=== PATIENT | female | born 2000 | race Caucasian/White ===

== ENCOUNTER 2024-10-10 10:10 | Inpatient (IN) | payer MEDICAID, SELFPAY ==
[2024-10-10] VITALS (105 sets, daily range): BP systolic 118–161; BP diastolic 62–98; PULSE 67–205; RESP 16–99; TEMP 36.4–37; O2SAT 66–100; BMI 26.9
[2024-10-10] MEDS: RINGERS LACTATED 1000 ML 1,000 ML 999 ML IV ×3 (11:26→21:56)
[2024-10-10 14:56] LABS: Basophils # (Auto) 0.1 Thou/mm3 (0.0-0.2); Basophils % (Auto) 0 % (0-2.5); Eosinophils # (Auto) 0.1 Thou/mm3 (0.0-0.5); Eosinophils % (Auto) 1 % (0-10); Hematocrit 37.6 % (36.0-46.0); Immature Granulocytes % (Auto) 0 % (0-0); Immature Granulocytes Auto 0.04 Thou/mm3 (0.00-0.00); Lymphocytes % (Auto) 17 % (10-50); Mean Corpuscular HGB Conc 34.6 g/dl (31.0-37.0); Mean Corpuscular Volume 87 fL (80-100); Monocytes # (Auto) 0.7 Thou/mm3 (0.0-0.8); Monocytes % (Auto) 6 % (0-12); Neutrophils # (Auto) 8.9 Thou/mm3 (1.8-7.7); Neutrophils % (Auto) 75 % (37-80); Nucleated Red Blood Cell % 0 /100 WBC (0); Platelet Count 215 Thou/mm3 (140-440); RDW Standard Deviation 37.2 fL (36.4-46.3); Red Blood Count 4.33 Miln/mm3 (4.00-5.20); White Blood Count 11.8 Thou/mm3 (3.6-11.0)
[2024-10-10 15:40] LABS: Syphilis Nonreactive (Nonreactive)
[2024-10-10 18:48] LABS: Amphetamine/Metham Scrn,Ur OB Negative (Negative); Benzoylecgonine Screen, Ur OB Negative (Negative); Opiate Screen,Urine OB Negative (Negative); THC Screen,Urine OB Negative (Negative)
--- NOTE | 2024-10-10 19:16 | PD.LDPN ---
Documentation for date of: 10/10/24 OB Labor Progress Note Pain Control Pain control: epidural Pelvic Exam Dilation (cm): 6 Effacement (%): 90 station: 0 Amniotic membrane status: Ruptured (AROM, bloody clear) Contractions Monitor mode: External Contraction frequency: 2-3 Contraction duration: 40-60 Contraction phase: Contraction Contraction intensity: Mild Status status: Category l Assessment and Plan Assessment: active labor Plan OB labor note: continuous present management Comments: AROM performed, bloody clear fluids Anticipate
--- NOTE | 2024-10-10 22:04 | ESPR_ITS ---
Documentation for date of: 10/10/24 OB Labor Progress Note Pain Control Pain control: epidural Pelvic Exam Dilation (cm): 10 Effacement (%): 100 station: +1 Amniotic membrane status: Ruptured (AROM, bloody clear) Contractions Monitor mode: External Contraction frequency: 2-3 Contraction duration: 40-60 Contraction phase: Contraction Contraction intensity: Mild Status status: Category ll Assessment and Plan Assessment: other (2nd stage) Comments: Fetus had 7 minute prolonged deceleration, RN checked pt she is complete, intrauterine measures completed. Fetus has recovered. RN will begin pushing once baby is Category 1 tracing and upon pt feeling pre ssure CNM in the unit awaiting delivery
[2024-10-10] MEDS: DIPHENOXYLATE/ATROP SULF 1 TAB PO (22:36)
[2024-10-10] MEDS: METOCLOPRAMIDE INJ 5 MG/ML VIAL 2 ML 10 MG IVP (22:51)
[2024-10-10] MEDS: FAMOTIDINE INJ 10 MG/ML VIAL 2 ML 20 MG IV (22:51)
[2024-10-10] MEDS: ceFAZolin/D5W 2 GM IV 2 GM/100 ML BAG IV (22:51)
--- NOTE | 2024-10-10 22:51 | PD.LDPN ---
Documentation for date of: 10/10/24 OB Labor Progress Note Pelvic Exam Dilation (cm): 10 Effacement (%): 100 station: +1 Amniotic membrane status: Ruptured (AROM, bloody clear) Contractions Monitor mode: External Contraction frequency: 2-3 Contraction phase: Contraction Contraction intensity: Mild Status status: Category ll Assessment and Plan Assessment: other (2nd stage) Plan OB labor note: Comments: Pushed with pt but fetus was not tolerating and continued to have variable deceleration Called Dr. Hananh, who reviewed the tracing and called a C/S Handoff to [place]
--- NOTE | 2024-10-10 22:53 | ESOP_ITS ---
Operative Note - CUSTOMER OPERATIONS ASSOCIATE Procedure Date of procedure: 10/10/24 Procedure Performed: Primary low-transverse section Indication: Failure to descend Category 2 with intermittent category 3 tracing Post-Op diagnosis: Same as preoperative Placental abruption Small for gestational age fetus Anesthesia type: Spinal Procedure description: Informed consent was obtained and the patient was taken to the operating room.? Identity was confirmed by double identifiers and she was placed on the operating table.? Spinal anesthesia was administered and she was positioned in the supine position.? The abdomen and perineum were prepped in the usual sterile fashion and a Trent catheter was placed to continuous drainage.? Sterile drapes were applied.? The incision site was tested for adequacy of anesthesia.? A Pfannenstiel skin incision was made with a scalpel and carried to the subcutaneous fat up to the rectus fascia.? The rectus fascia was incised on either side of the midline and the incisions were extended bilaterally.? The fascia was gently dissected off the ventral surface of the rectus muscle both superiorly and inferiorly.? The rectus bellies were gently in the midline and the peritoneum was identified and entered bluntly using the surgeon's finger.? The peritoneal opening was now stretched to create an adequate opening for access to the uterus.? Ori O-ring retractor was placed for adequate visualization.? The anterior surface of the uterus was palpated.? The bladder reflection was identified and a Eleni Lai low transverse uterine incision was made in the lower uterine segment taking care to avoid the bladder.? Uterine entry was accomplished bluntly and the opening was stretched to create adequate room.? The amniotic membranes were now ruptured and clear amniotic fluid was released.? The fetus was noted to be in the vertex position.? The head was gently elevated out of the maternal pelvis and single loop of nuchal cord was found around the neck.? The cord was released and the rest of the shoulders and body were delivered by gentle fundal pressure.? Umbilical cord was doubly clamped, divided and the infant was handed over to the waiting team.? Cord gas samples were obtained.? The placenta was delivered by gentle traction on the umbilical cord.? The interior of the uterus was now thoroughly cleaned of all blood and debris and membranes.? The hysterotomy angles were grasped by a pair of Allis clamps and the hysterotomy was closed using 1 Monocryl suture in 2 layers.? The first layer was used to approximate the muscle in a running locked fashion, the second layer was used to approximate the thickness of the myometrium?and uterine serosa in a imbricated manner.? Once the repair was completed the hysterotomy was inspected and noted to be adequately hemostatic.?? Attention was now turned to the left fallopian tube.? The tube was grasped using Radha's clamp and elevated to expose the mesosalpinx.? Salpingectomy was performed using the LigaSure vessel sealing device and the entire tube was handed over for pathological examination.? The same procedure was repeated on the contralateral side.? The salpingectomy sites were inspected and noted to be adequately hemostatic. The hysterotomy was once again inspected and hemostasis was noted to be satisfactory.? The Ori retractor was now removed.? The peritoneal edges were re approximated.? The rectus muscles were re approximated.? The rectus fascia was now repaired using 0 Vicryl suture in a running fashion.? The subcutaneous layer was now copiously irrigated using warm normal saline.? All bleeding points were cauterized using the Bovie.? The subcutaneous fat was closed using 3-0 Vicryl.? The skin was closed using 4-0 Monocryl in a subcuticular fashion.? The skin was cleaned and a sterile dressing was applied.? The patient was now undraped, the abdomen and back were thoroughly cleaned and she was not transferred to the recovery room in a stable and awake condition.? The patient tolerated the entire procedure well.? No complications were encountered.? All instrument, sponge and lap counts were correct x2. Estimated blood loss (ml): 600 Complications: none Diagnosis Discharge Diagnosis (1) Failure of descent in labor, delivered, current hospitalization: Status: Acute (2) delivery delivered: Status: Acute (3) SGA (small for gestational age), , affecting care of mother, antepartum: Status: Acute Problem List Completed Was Problem List Reviewed/Reconciled?: Yes
--- NOTE | 2024-10-10 23:47 | PD.LDDELS ---
Data (Ward) Data Hx Section: No : 1 Term: 0 : 0 : 0
[2024-10-11] VITALS (17 sets, daily range): BP systolic 117–146; BP diastolic 69–90; PULSE 83–104; RESP 15–23; TEMP 36.5–37.6; O2SAT 96–100
--- NOTE | 2024-10-11 00:08 | SUR.PHASEI ---
0008: pt received from OB OR via bed. received report from GERALDINE Raymundo and KELSI Nguyen. pt alert and oriented x3. denies any pain or discomfort. no s/s of resp. distress or discomfort. dressing to lower transverse abdomen clean, dry and intact. no active bleeding noted from dressing. lopez cath in place and intact.
[2024-10-11] MEDS: OXYTOCIN in NS 20 units 20 UNIT/1,000 ML BAG 125 UNIT IV (00:55)
--- NOTE | 2024-10-11 02:10 | SUR.PHASEI ---
0210: pt transferred to room 467. pt alert and oriented x3. denies any pain or discomfort. no s/s of resp. distress or discomfort. dressing to lower transverse abdomen clean, dry and intact. no active bleeding noted from dressing. lopez cath in place and intact.
--- NOTE | 2024-10-11 02:10 | SUR.PHASEI ---
0210: report given to GERALDINE Guajardo
--- NOTE | 2024-10-11 02:10 | SUR.PHASEI ---
0210: report given GERALDINE Noriega.
[2024-10-11] MEDS: KETOROLAC INJ 30 MG/ML VIAL IVP ×2 (03:29→11:52)
[2024-10-11 05:59] LABS: Basophils # (Auto) 0.1 Thou/mm3 (0.0-0.2); Basophils % (Auto) 0 % (0-2.5); Eosinophils % (Auto) 0 % (0-10); Hematocrit 32.4 % (36.0-46.0); Hemoglobin 11.5 g/dL (12.0-16.0); Immature Granulocytes % (Auto) 0 % (0-0); Immature Granulocytes Auto 0.06 Thou/mm3 (0.00-0.00); Lymphocytes # (Auto) 1.7 Thou/mm3 (1.0-4.8); Lymphocytes % (Auto) 10 % (10-50); Mean Corpuscular HGB Conc 35.5 g/dl (31.0-37.0); Mean Corpuscular Hemoglobin 30.7 pg (25.0-35.0); Mean Corpuscular Volume 86 fL (80-100); Monocytes % (Auto) 6 % (0-12); Neutrophils # (Auto) 13.9 Thou/mm3 (1.8-7.7); Neutrophils % (Auto) 83 % (37-80); Nucleated Red Blood Cell % 0 /100 WBC (0); Platelet Count 175 Thou/mm3 (140-440); RDW Standard Deviation 36.9 fL (36.4-46.3); Red Blood Count 3.75 Miln/mm3 (4.00-5.20); White Blood Count 16.7 Thou/mm3 (3.6-11.0)
--- NOTE | 2024-10-11 06:59 | PD.LDHP ---
Documented by User: Patricia Almanza CNM 10/11/24 07:05 Documentation for date of: 10/11/24 OB Labor/Induct. HPI History of Present Illness Chief complaint: labor : 1 Para: 0 Term pregnancies: 0 pregnancies: 0 Living children: 0 History of Abortions: Spontaneous and Elective: 0 History of Vaginal deliveries: 0 History of sections: No History of : No Date of last menstrual period: 01/19/24 [place]ER[place]: 10/25/24 Gestational Age (weeks): 37 Gestational Age (days): 6 Gestational age based on last menstrual period: 38 History of present illness: This is a 23-year-old 1 para 0 admit to labor and delivery for complaints of contractions became regular and strong at 10:00 AM. [facility] First visit 8 weeks. Last period January 19, 2024. EDC October 25, 2024. First visit was at 8 weeks. Patient had several anatomy scans. Showed EFW in the 23rd percentile with a small VSD. Desires social habits. Denies surgery. Denies chronic illness. Patient is O+, antibody screen negative, RPR nonreactive, rubella immune, hepatitis B-, hep C negative, HIV negative, GC and Chlamydia were negative. GBS negative. Patient had a normal 1 hour. Her NIPT AFP and carrier screens were all negative History of Present Dating criteria: LMP confirmed by 1st trimester US Adequate Care: Yes Ultrasounds: normal 1st trimester US and normal mid trimester US Obstetrical complications: none Medical complications: none Labs Labs: Negative: Hepatitis B, HIV, Chlamydia, Gonorrhea and Group Beta Strep Review of Systems Review of Systems Systems Reviewed: All systems reviewed, normal except as documented Past Medical History Surgical History SURGICAL: Negative Section Meds Home Medications and Allergies Home Medications ?Medication ?Instructions ?Recorded ?Confirmed ?Type vit no.95-ferrous 1 tab PO QDAY 10/10/24 10/10/24 History fumarate 28 mg-folic acid 800 mcg tablet () Allergies Allergy/AdvReac Type Severity Reaction Status Date / Time No Known Allergies Allergy Verified 10/11/24 00:25 OB Exam Physical Exam Vital signs: Temp Pulse Resp BP Pulse Ox O2 Del Method O2 Flow Rate 98.6 F 102 H 18 128/81 98 Room Air 2 10/11/24 05:30 10/11/24 03:30 10/11/24 03:30 10/11/24 03:30 10/11/24 03:30 10/11/24 03:30 10/11/24 01:05 Narrative: Normal heart rate and rhythm. Lungs clear no wheezes. Gravid abdomen. Gynecoid pelvis. Estimated weight 6 pounds. Vaginal exam on admission was 90%, 4, -2. Bag water intact. heart rate category 1 with accelerations and moderate variability. And contractions were every 3 to 5 minutes. Detailed Labor and Delivery Exam Dilation (cm): 4 Effacement (%): 90 Cervix position: mid station: -2 Consistency: soft Presentation: Vertex Cervical ripeness score: 8 Membranes: intact Baseline heart rate: 145 monitor accelerations: 15x15 monitor decelerations: None intermediate accountant variability: Moderate (11-25) Contraction frequency (min): 3-5 Contraction duration (sec): 30 Tachysystole: No Contraction intensity: Moderate OB Results Labs 10/11/24 05:30 Labs: Short CBC 10/10/24 10/11/24 Range/Units 13:00 05:30 WBC 11.8 H 16.7 H D (3.6-11.0) Thou/mm3 Hgb 13.0 11.5 L (12.0-16.0) g/dL Hct 37.6 32.4 L (36.0-46.0) % Plt Count 215 175 D (140-440) Thou/mm3 Impressions Impression: labor OB Assessment & Plan Assessment and Plan (1) Failure of descent in labor, delivered, current hospitalization: Status: Acute (2) delivery delivered: Status: Acute (3) SGA (small for gestational age), , affecting care of mother, antepartum: Status: Acute (4) Normal labor and delivery: Status: Acute Additional Plan Induction method: none Plan: anticipate NVD and consult MD albright Documented by User: Derrick Hannah MD 10/11/24 08:34 OB Labor/Induct. HPI History of Present Illness Gestational age based on last menstrual period: 38 Meds Home Medications and Allergies Home Medications ?Medication ?Instructions ?Recorded ?Confirmed ?Type vit no.95-ferrous 1 tab PO QDAY 10/10/24 10/10/24 History fumarate 28 mg-folic acid 800 mcg tablet () Allergies Allergy/AdvReac Type Severity Reaction Status Date / Time No Known Allergies Allergy Verified 10/11/24 00:25 OB Exam Physical Exam Vital signs: Temp Pulse Resp BP Pulse Ox O2 Del Method O2 Flow Rate 98.6 F 102 H 18 128/81 98 Room Air 2 10/11/24 05:30 10/11/24 03:30 10/11/24 03:30 10/11/24 03:30 10/11/24 03:30 10/11/24 03:30 10/11/24 01:05 OB Results Labs 10/11/24 05:30 Labs: Short CBC 10/10/24 10/11/24 Range/Units 13:00 05:30 WBC 11.8 H 16.7 H D (3.6-11.0) Thou/mm3 Hgb 13.0 11.5 L (12.0-16.0) g/dL Hct 37.6 32.4 L (36.0-46.0) % Plt Count 215 175 D (140-440) Thou/mm3 OB Assessment & Plan Assessment and Plan (1) Failure of descent in labor, delivered, current hospitalization: Status: Acute (2) delivery delivered: Status: Acute (3) SGA (small for gestational age), , affecting care of mother, antepartum: Status: Acute (4) Normal labor and delivery: Status: Acute
--- NOTE | 2024-10-11 08:32 | PD.LDPPPRG ---
Subjective Subjective Interval history: Delivery type: Patient doing well this morning. No acute complaints. Ambulating, tolerating p.o. and voiding without difficulty. HTN/Pre-Eclampsia screen: No chest pain, shortness of breath, headache, visual changes, epigastric or right upper quadrant pain. Breast-feeding, lochia diminishing. Bowel: Flatus+/ BM+ Exam Vital Signs Temp Pulse Resp BP Pulse Ox O2 Del Method O2 Flow Rate 98.6 F 102 H 18 128/81 98 Room Air 2 10/11/24 05:30 10/11/24 03:30 10/11/24 03:30 10/11/24 03:30 10/11/24 03:30 10/11/24 03:30 10/11/24 01:05 Constitutional Constitutional: no acute distress Routine HEENT Exam Head: Present normocephalic and atraumatic Eye: Present EOMI and PERRL ENT: Present mucous membranes moist Routine Neck Exam Neck: Present supple and trachea midline Routine Respiratory Exam Respiratory: Present chest non-tender, lungs clear, normal breath sounds and no resp distress Routine Cardiovascular Exam Cardiovascular: Present RRR Routine Abdominal Exam Abdominal: Present soft and normoactive bowel sounds Routine Extremities Exam Extremities: Present full ROM Routine Skin Exam Skin: Present intact, dry and warm Routine Neurological Exam Neurological: Present alert, oriented X3 and CN II-XII intact Routine Psychiatric Exam Psychiatric: Present normal affect and normal thought process Objective Labs 10/11/24 05:30 Labs: Laboratory Results - last 24 hr 10/10/24 10/10/24 10/11/24 13:00 17:20 05:30 WBC 11.8 H 16.7 H D RBC 4.33 3.75 L Hgb 13.0 11.5 L Hct 37.6 32.4 L MCV 87 86 MCH 30.0 30.7 MCHC 34.6 35.5 RDW Std Deviation 37.2 36.9 Plt Count 215 175 D Neut % (Auto) 75 83 H Lymph % (Auto) 17 10 [place] % (Auto) 6 6 Eos % (Auto) 1 0 Baso % (Auto) 0 0 Neut # (Auto) 8.9 H 13.9 H Lymph # (Auto) 2.0 1.7 [place] # (Auto) 0.7 1.0 H Eos # (Auto) 0.1 0.0 Baso # (Auto) 0.1 0.1 Immature Gran # (Auto) 0.04 H 0.06 H Absolute Nucleated RBC 0.00 0.00 Immature Gran % 0 0 Nucleated RBC % 0 0 Urine Opiates Screen Negative U Amphetamin/Meth Scrn Negative U Cocaine Metab Screen Negative U Marijuana (THC) Screen Negative Syphilis Serology Nonreactive Blood Type O Positive Antibody Screen NEGATIVE Blood Bank Wristband ID Yes Assessment & Plan Problem List (1) Failure of descent in labor, delivered, current hospitalization: Status: Acute (2) delivery delivered: Status: Acute Assessment and plan: 1. Continue routine /post-op care 2. Labs reviewed, cbc appropriate 3. Remove dressing/Trent 4. Encourage to ambulate, shower 5. Encourage PO intake, breast feeding (3) SGA (small for gestational age), , affecting care of mother, antepartum: Status: Acute (4) Normal labor and delivery: Status: Acute Time Spent With Patient Time: Total time spent is greater than 50% in coordination of care (as documented) at patient's floor/unit and/or counseling patient:
--- NOTE | 2024-10-11 08:33 | OBDSUM_ITS ---
Data (Ward) Data Hx Section: No : 1 Para: 0 Term: 0 : 0 : 0 Delivery Data (Ward) Labor Data ROM Date: 10/10/24 ROM Time: 16:12 Rupture Type: AROM Amniotic Fluid: Clear Delivery Data Labor Onset Stage 1 Date: 10/10/24 Labor Onset Stage 1 Time: 16:45 Labor Onset Stage 2 Date: 10/10/24 Labor Onset Stage 2 Time: 21:36 Delivery Date: 10/10/24 Delivery Time: 23:24 Placenta Delivery Date: 10/10/24 Placenta Delivery Time: 23:24 Delivered by: Derrick Hannah Delivery nurse: Breanne Brumfield Other staff at delivery: Nursery Nurse Other staff at delivery: KELSI Other staff at delivery: Sharyn Rivera Other staff at delivery: Abisai Jaimes Delivery Method Delivery: Delivery Type: Primary Anesthesia Type Primary Anesthesia: Epidural Secondary Anesthesia: General Umbilical Cord Placenta/Cord Complication: Placental Abruption [place] Data (Ward) Data Gender: Male Weight Grams: 2400 1 Minute Total: 4 5 Minute Total: 6 10 Minute Total: 9
--- NOTE | 2024-10-11 08:33 | ESDS_ITS ---
DS: Providers Provider Date of admission: 10/10/24 13:21 Primary care physician: Physician No Primary/Family Admitting Provider: Derrick Hannah MD Attending Provider on Admission: Patricia Almanza CNM Consults: 10/10/24 23:39 Referral Routine Comment: Attending Provider on DC: Derrick Hannah MD Discharging Provider: Derrick Hannah MD DS: Diagnosis Discharge Diagnosis (1) delivery delivered: Status: Acute (2) SGA (small for gestational age), , affecting care of mother, antepartum: Status: Acute (3) Failure of descent in labor, delivered, current hospitalization: Status: Acute Problem List Completed Was Problem List Reviewed/Reconciled?: Yes Summary/Hosp Course Brief History: This is a 23-year-old 1 para 0 admit to labor and delivery for complaints of contractions became regular and strong at 10:00 AM. Patient is been followed [facility] care. First visit 8 weeks. Last period January 19, 2024. EDC October 25, 2024. First visit was at 8 weeks. Patient had several anatomy scans. Showed EFW in the 23rd percentile with a small VSD. Desires social habits. Denies surgery. Denies chronic illness. Patient is O+, antibody screen negative, RPR nonreactive, rubella immune, hepatitis B-, hep C negative, HIV negative, GC and Chlamydia were negative. GBS negative. Patient had a normal 1 hour. Her NIPT AFP and carrier screens were all negative Peripartum Data Procedures: Procedures Operation Date: 10/10/24 23:00 Actual Procedure Side Surgeon p in OB Derrick Hannah MD Time Spent with Patient Time attestation: Total time spent providing and/or coordinating discharge services: Exam Vital Signs Temp Pulse Resp BP Pulse Ox O2 Del Method O2 Flow Rate 98.6 F 102 H 18 128/81 98 Room Air 2 10/11/24 05:30 10/11/24 03:30 10/11/24 03:30 10/11/24 03:30 10/11/24 03:30 10/11/24 03:30 10/11/24 01:05 Discharge Plan Plan Patient Disposition: HOME (Self Care) Patient condition on transfer: Stable Prescriptions/Referrals Prescriptions/Med Rec: New hydrocodone-acetaminophen 5-325 mg tablet 1 tab PO Q6H MDD 4 PRN (Reason: pain) 5 Days Qty: 20 0RF ibuprofen 800 mg tablet 800 mg PO Q6H 10 Days Qty: 40 0RF docusate sodium [Stool Softener] 100 mg capsule 100 mg PO QDAY 30 Days Qty: 30 0RF Continued PNV cmb#95-ferrous fumarate-FA [] 28 mg iron- 800 mcg tablet 1 tab PO QDAY Patient Comments: ONE TABLET DAILY BY MOUTH ORALLY ONCE PER DAY 30 DAYS Referrals: Derrick Hannah MD [Physician] - No Primary/Family,Physician [Primary Care Provider] - Patient/Caregiver Discharge Instructions Meds to Beds: Yes Discharge Activity: activity as tolerated Education Materials: After Delivery Concerns, Breast Care After , After a , Nutrition While , Understanding Depression, : Caring for Yourself, C Section Dc, Feel Healthy After Print Language: French Stand Alone Forms: [facility] Award Info., Patient Portal Info Letter Planned Discharge Date 10/13/24
[2024-10-11] MEDS: IBUPROFEN TAB 400 MG TABLET 800 MG PO (18:32)
--- NOTE | 2024-10-11 21:07 | PC.NURSE ---
breast pump provided per pt request.
[2024-10-12 03:42] VITALS: BP 134/85; PULSE 103; RESP 20; TEMP 36.8; O2SAT 98
[2024-10-12] MEDS: IBUPROFEN TAB 400 MG TABLET 800 MG PO (04:24)
[2024-10-12 06:43] LABS: Basophils % (Auto) 0 % (0-2.5); Eosinophils # (Auto) 0.1 Thou/mm3 (0.0-0.5); Eosinophils % (Auto) 1 % (0-10); Hematocrit 29.4 % (36.0-46.0); Hemoglobin 10.3 g/dL (12.0-16.0); Immature Granulocytes % (Auto) 0 % (0-0); Immature Granulocytes Auto 0.04 Thou/mm3 (0.00-0.00); Lymphocytes # (Auto) 1.8 Thou/mm3 (1.0-4.8); Lymphocytes % (Auto) 15 % (10-50); Mean Corpuscular Hemoglobin 30.4 pg (25.0-35.0); Mean Corpuscular Volume 87 fL (80-100); Monocytes # (Auto) 0.9 Thou/mm3 (0.0-0.8); Monocytes % (Auto) 8 % (0-12); Neutrophils # (Auto) 8.8 Thou/mm3 (1.8-7.7); Neutrophils % (Auto) 76 % (37-80); Nucleated Red Blood Cell % 0 /100 WBC (0); Platelet Count 175 Thou/mm3 (140-440); RDW Standard Deviation 38.7 fL (36.4-46.3); Red Blood Count 3.39 Miln/mm3 (4.00-5.20); White Blood Count 11.6 Thou/mm3 (3.6-11.0)
[2024-10-12 08:00] VITALS: BP 128/80; PULSE 90; RESP 18; TEMP 36.7; O2SAT 98
[2024-10-12] MEDS: Milk Of Magnesia Susp 30 ML UDC PO (08:08)
[2024-10-12] MEDS: DOCUSATE SOD 100 MG CAPSULE PO (08:08)
[2024-10-12] MEDS: SIMETHICONE 80 MG CHEW PO (08:08)
[2024-10-12] MEDS: ACETAMINOPHEN 325 MG TABLET 650 MG PO (08:08)
--- NOTE | 2024-10-12 10:32 | PC.NURSE ---
Cleared by social media campaign manager
--- NOTE | 2024-10-12 11:03 | PC.CC ---
Patient is a 23 year-old female who presents to the [facility] to deliver her new born son, Tony Elder. Itzel JACKMAN made [id number] contact with patient. ASW introduced self, role, and reason for visit. Patient appeared alert and oriented to self, location, and situation. ASW discussed limits of confidentiality. Patient was pleasant and engaged in initial assessment. Itzel JACKMAN informed patient that there was a consultation received for history of THC Use and Alcohol. The patient reports she has not used THC since the day before she found out she was . Patient stated she does not plan on using THC again. Patient reports that the Father of Baby is Tra Elder and is involved. Patient stated he is part of her support system. The patient denied current or past domestic violence. Patient reports that she does not receive any community assistance such as WIC. Patient has all the supplies she needs for her son. The mother plans on formula feeding the baby as she has not been successful with breast feeding. ARNAV provided psychoeducation regarding baby blues and Post- Depression, as well as counseling groups at [facility]. SW provided community resources: Warm Line and Crisis Line. GERALDINE Kelly provided with update regarding the patient.
--- NOTE | 2024-10-12 12:18 | PD.LDPPPRG ---
Subjective Subjective Interval history: Delivery type: Patient doing well this morning. No acute complaints. Ambulating, tolerating p.o. and voiding without difficulty. HTN/Pre-Eclampsia screen: No chest pain, shortness of breath, headache, visual changes, epigastric or right upper quadrant pain. Breast-feeding, lochia diminishing. Bowel: Flatus+/ BM+ UOP: Exam Vital Signs Temp Pulse Resp BP Pulse Ox O2 Del Method O2 Flow Rate 98.1 F 90 18 128/80 98 Room Air 2 10/12/24 08:00 10/12/24 08:00 10/12/24 08:00 10/12/24 08:00 10/12/24 08:00 10/12/24 08:00 10/11/24 01:05 Constitutional Constitutional: no acute distress Routine HEENT Exam Head: Present normocephalic and atraumatic Eye: Present EOMI and PERRL ENT: Present mucous membranes moist Routine Neck Exam Neck: Present supple and trachea midline Routine Respiratory Exam Respiratory: Present chest non-tender, lungs clear, normal breath sounds and no resp distress Routine Cardiovascular Exam Cardiovascular: Present RRR Routine Abdominal Exam Abdominal: Present soft and normoactive bowel sounds Routine Extremities Exam Extremities: Present full ROM Routine Skin Exam Skin: Present intact, dry and warm Routine Neurological Exam Neurological: Present alert, oriented X3 and CN II-XII intact Routine Psychiatric Exam Psychiatric: Present normal affect and normal thought process Objective Labs 10/12/24 06:05 Labs: Laboratory Results - last 24 hr 10/12/24 06:05 WBC 11.6 H D RBC 3.39 L Hgb 10.3 L Hct 29.4 L MCV 87 MCH 30.4 MCHC 35.0 RDW Std Deviation 38.7 Plt Count 175 Neut % (Auto) 76 Lymph % (Auto) 15 [place] % (Auto) 8 Eos % (Auto) 1 Baso % (Auto) 0 Neut # (Auto) 8.8 H Lymph # (Auto) 1.8 [place] # (Auto) 0.9 H Eos # (Auto) 0.1 Baso # (Auto) 0.0 Immature Gran # (Auto) 0.04 H Absolute Nucleated RBC 0.00 Immature Gran % 0 Nucleated RBC % 0 Assessment & Plan Problem List (1) Failure of descent in labor, delivered, current hospitalization: Status: Acute (2) delivery delivered: Status: Acute Assessment and plan: PPD/POD#2 1. Continue routine care 2. Transition to PO meds. 3. Encourage to ambulate/ breast-feed 4. Anticipate discharge home tomorrow as she was a late night (3) SGA (small for gestational age), , affecting care of mother, antepartum: Status: Acute (4) Normal labor and delivery: Status: Acute Time Spent With Patient Time: Total time spent is greater than 50% in coordination of care (as documented) at patient's floor/unit and/or counseling patient:
== END 2024-10-12 14:00 | disposition home or self-care (01) | DRG 540 ==
LOC: S4SX 23:47 → S4NX 23:58
PROVIDERS: Admitting Provider Obstetrics & Gynecology; Visit Provider Advanced Practice Midwife
PROC: (CPT 59514; principal; 2024-10-11 23:00)
DX: O32.4XX0 Maternal care for high head at term, not applicable or unspecified (principal); O36.5930 Maternal care for other known or suspected poor fetal growth, third trimester, not applicable or unspecified; Z37.0 Single live birth; Z3A.37 37 weeks gestation of pregnancy; O69.81X0 Labor and delivery complicated by cord around neck, without compression, not applicable or unspecified; O45.93 Premature separation of placenta, unspecified, third trimester; O76 Abnormality in fetal heart rate and rhythm complicating labor and delivery
CPT/HCPCS: 36415; 59025; 80307; 85025; 86780; 86850; 86900; 86901; A4649; J0689; J1885; J2250; J2274; J2590; J2704; J2765; J2795; J3010; J3490; J7120; A9270; J2270